=== PATIENT | male | born 1950 | race Caucasian/White ===

== ENCOUNTER 2019-07-03 09:07 | Emergency (ER) | payer BC, OTHER ==
[~2019-07-03] VITALS: Ht 188 cm; Wt 102.1 kg
[2019-07-03] MEDS ORDERED: cloNIDine HCL 0.1 MG TAB PO ONE (09:30)
[2019-07-03 10:28] VITALS: BP 157/86
== END 2019-07-03 10:38 | disposition home or self-care (01) ==
LOC: ER 09:07
DX: L85.8 Other specified epidermal thickening (principal); R03.0 Elevated blood-pressure reading, without diagnosis of hypertension

== ENCOUNTER 2019-09-14 13:41 | Emergency (ER) | payer BC ==
[~2019-09-14] VITALS: Ht 188 cm; Wt 99.8 kg
[2019-09-14 15:15] VITALS: BP 147/74
[2019-09-14] MEDS ORDERED: BACITRACIN TOP OINT 1 UD PKG TOP ONE (15:15)
== END 2019-09-14 15:15 | disposition home or self-care (01) ==
LOC: ER 13:41
DX: S61.211A Laceration without foreign body of left index finger without damage to nail, initial encounter (principal); W26.9XXA Contact with unspecified sharp object(s), initial encounter; Y93.89 Activity, other specified; Y92.89 Other specified places as the place of occurrence of the external cause; Y99.8 Other external cause status